=== PATIENT | female | born 1955 | race African-American/Black ===

== ENCOUNTER 2018-02-27 13:19 | Emergency (ER) | payer MEDICAID ==
[~2018-02-27] VITALS: Ht 167.6 cm; Wt 83.0 kg
[2018-02-27] MEDS ORDERED: INSULIN REGULAR (HUMULIN R) UD 100 UNITS/ML SYR SUBCUT ONE (13:45)
[2018-02-27] MEDS ORDERED: METOPROLOL TARTRATE 5MG/5ML VIAL IV ONE (13:45)
[2018-02-27] MEDS ORDERED: IOHEXOL-350 100 ML BOTTLE ONE (14:27)
[2018-02-27] MEDS ORDERED: LABETALOL HCL 200 MG in DEXT 5% WATER 60 ML IV STA ×2 (14:35→15:30)
[2018-02-27] MEDS ORDERED: ALTEPLASE 100MG/VIAL IV STA (14:35)
[2018-02-27] MEDS ORDERED: ALTEPLASE IV STA (14:35)
[2018-02-27] MEDS ORDERED: INSULIN REGULAR (HUMULIN R) 300UNITS/3ML SUBCUT ONE (14:45)
[2018-02-27 14:47] LABS: BASOPHILS % 0.8 % (0.0-2.0); EOSINOPHILS % 0.4 % (0.0-5.0); HEMATOCRIT. 48.4 % (36.0-48.0); LYMPHOCYTES % 30.8 % (20.0-50.0); MEAN CORPUSCULAR HEMOGLOBIN 24.9 pg (28.0-32.0); MEAN CORPUSCULAR VOLUME 75.6 fL (81.0-99.0); MEAN PLATELET VOLUME 8.2 fl (7.4-10.4); MONOCYTES % 7.1 % (2.0-8.0); NEUTROPHILS % 60.9 % (40.0-76.0); PLATELET 297 x1000/uL (130-400); RED CELL DISTRIBUTION WIDTH 15.2 % (11.6-14.6)
[2018-02-27 14:57] LABS: CHLORIDE 93 mEq/L (98-107); PARTIAL THROMBOPLASTIN TIME 26.6 sec (23.4-31.0)
[2018-02-27 15:01] LABS: ETHANOL BLOOD < 10 mg/dL
[2018-02-27 15:04] LABS: LDL CHOLESTEROL 114 mg/dL (5-100)
[2018-02-27] MEDS ORDERED: LABETALOL 5MG/ML SYR 20 MG/4 ML SYRINGE IV ONE (15:30)
[2018-02-27] MEDS ORDERED: LABETALOL HCL 20MG/4ML CARPUJECT IV ONE (15:30)
[2018-02-27] MEDS ORDERED: INSULIN REGULAR (DRIP) 100 UNITS in SODIUM CHLORIDE 0.9% 100 ML IV ONE (16:00)
[2018-02-27 16:15] VITALS: BP 137/93
[2018-02-27] MEDS ORDERED: INSULIN REGULAR (DRIP) 100 UNITS in SODIUM CHLORIDE 0.9% 100 ML IV NR (16:20)
== END 2018-02-27 17:15 | disposition short-term general hospital (02) ==
LOC: ER 13:19 → EDBEDREQSVC 15:39 → ER 17:15 → CANBEDREQ 17:39
DX: I63.9 Cerebral infarction, unspecified (principal); E11.10 Type 2 diabetes mellitus with ketoacidosis without coma; I10 Essential (primary) hypertension; R41.82 Altered mental status, unspecified; R29.810 Facial weakness
CPT/HCPCS: 36415; 37195; 70450; 70496; 70498; 71045; 80053; 82010; 82962; 83721; 84484; 85025; 85610; 85730; 93005; 96365; 96372; 96375; 99291; G0482; J1815; J2997; J3490; Q9967; J7050; J7060